=== PATIENT | male | born 1985 | race African-American/Black ===

== ENCOUNTER 2016-11-30 07:14 | Emergency (ER) | payer OTHER ==
--- NOTE | ~2016-11-30 | EKG ---
PATIENT: HUY GALEANO UNIT #: [id number] Ventricular Rate: 85 BPM Atrial Rate: 85 BPM P-R Interval: 168 ms QRS Duration: 108 ms Q-T Interval: 342 ms QTC Calculation(Bezet): 406 ms P Hopkins: 67 degrees Calculated R Hopkins: 8 degrees Calculated T Hopkins: 44 degrees Diagnosis Line: Normal sinus rhythm Diagnosis Line: Anterior infarct , age undetermined Diagnosis Line: Abnormal ECG Diagnosis Line: No previous ECGs available Diagnosis Line: Confirmed by RISHI ESQUIVEL MD ([id number]) on Diagnosis Line: 11/30/2016 7:12:42 PM INTERPRETING MD: SIERRA ELISE
--- NOTE | ~2016-11-30 | CR72 ---
[facility]. [facility] A Service of [facility] & [facility] RADIOLOGY TEXT RESULTS PATIENT: HUY GALEANO SR LOCATION: SED : 81 UNIT #: [id number] AGE: [address]: Teofilo Hilario MD SEX: M ORDER DR: [id number] [place] [id number] MR#: [id number] Acc #: [id number] NAME: HUY GALEANO SR : 1985 SEX: M STUDY DATE/TIME: 11/30/2016 8:37 UNIT: SED ROOM: STUDY DESCRIPTION: CR Chest Single View Portable Attending Physician: Teofilo Hilario M.D. Ordering Physician: Teofilo Hilario M.D. MEDICAL IMAGING REPORT This report is preliminary unless electronic signature is present. EXAM Portable chest 11/30 HISTORY Chest pain for 3 days COMPARISON 11/18/2014 FINDINGS A portable view of the chest was obtained. The heart size and vascularity are normal and the lungs are clear. The bones are normal. IMPRESSION No active disease. Dictated by... Valdez Bullock M.D. THIS IS AN ELECTRONICALLY VERIFIED REPORT Valdez Bullock M.D. at 11/30/2016 4:56 PM FEL/to TD: 11/30/2016 12:59 JOB #: [id number] MEDICAL IMAGING REPORT Page 1 of 1
[~2016-11-30 07:14] MED LIST: ATARAX PO; BENADRYL PO; BENADRYL25 MG PO; DOXYCYCLINE PO; HYDRALAZINE HCL25 MG PO; HYDROCHLOROTHIA25 MG PO; HYDROXYZINE HCL25 M1 PO; KEFLEX500 MG PO; MEDROL DOSEPAK4 MG DOB; MEDROL DOSEPAK4 MG PO; PHENERGAN25 MG PO; PRAMOSONE TOP; PREDNISONE PO; PREDNISONE1 MG PO; PREDNISONE10 MG PO; TRIAMCINOLONE A15 G2 EXT; TRIAMCINOLONE AC1 GM EXT; VIBRAMYCIN100 M1 PO; VISTARIL PO; VISTARIL50 MG PO; [UNRECOGNIZED DRUG - OTHER] TOP; [UNRECOGNIZED DRUG - OTHER] TP
[2016-11-30 08:02] LABS: POC - CKMB <1.0 ng/mL (0.0-7.9)
[2016-11-30 08:03] LABS: BASOPHIL# 0.1 X10e3 (0-0.3); BASOPHIL% 0.8 % (0-2.5); EOSINOPHIL# 0.1 X10e3 (0-0.7); HEMATOCRIT 40.8 % (38.0-50.0); LYMPHOCYTE# 1.3 X10e3 (1.0-3.5); LYMPHOCYTE% 20.6 % (17.0-45.0); MEAN CELL VOLUME 91.5 FL (83-96); MEAN CORPUSCULAR HEMOGLOBIN 31.5 PG (28-34); MEAN CORPUSCULAR HGB CONC 34.4 g/dL (30-36); MEAN PLATELET VOLUME 8.1 FL (6.5-11.5); MONOCYTE# 0.9 X10e3 (0-1.0); MONOCYTE% 14.4 % (3.0-12.0); NEUTROPHIL% 62.2 % (40-75); PLATELET COUNT 276 X10e3 (140-420); RED BLOOD COUNT 4.45 X10e (3.90-5.60); RED CELL DISTRIBUTION WIDTH 12.7 % (11.0-15.5); WHITE BLOOD COUNT 6.4 X10e3 (4.0-10.5)
[2016-11-30 08:03] LABS: POC - TROPONIN <0.05 ng/mL (<=0.05)
[2016-11-30 08:07] LABS: DIFF IND NO
[2016-11-30 08:10] LABS: BUN/CREATININE RATIO 11.25; CALCIUM SERUM 8.4 mg/dL (8.4-10.2); CREATININE SERUM 0.8 mg/dL (0.6-1.4); GLOM FILT RATE Estimated 137.1 mL/min (>60); POTASSIUM 3.6 mmol/L (3.5-5.1)
== END 2016-11-30 10:03 | disposition home or self-care (01) ==
LOC: SED 07:14
PROVIDERS: Emergency Medicine
DX: J40 Bronchitis, not specified as acute or chronic (principal); F17.210 Nicotine dependence, cigarettes, uncomplicated; Z88.1 Allergy status to other antibiotic agents
CPT/HCPCS: 36415; 71010; 80048; 82553; 84484; 85025; 93005; 94640; 96361; 96374; 96375; 99284; J1100; J1885